=== PATIENT | male | born 1930 | race Caucasian/White ===

== ENCOUNTER → 2018-04-24 | Outpatient (CLI) | payer MEDICARE ==
[~2018-04-24] MED LIST: ALEN70 PO; ALLO300 PO; AMLO5 PO; ASPI81CH PO; CEPH500 PO; CHOL10002 PO; FURO80 PO; HYDR1TAB94 PO; IRON150C PO; LEVSOD75 PO; LOVA40 PO; METO2.5 PO; METO25ER PO; OMEP40CA12 PO; POTCHL20ER PO; SPIR25 PO; WARF1 PO; WARF2.5 PO; [UNRECOGNIZED DRUG - REMARK]
== END | disposition home or self-care (01) ==
LOC: LAB SHORT 11:31 → PLD 11:31
DX: D48.5 Neoplasm of uncertain behavior of skin (principal)
CPT/HCPCS: 88305

== ENCOUNTER → 2019-05-04 | Outpatient (CLI) | payer MEDICARE ==
[~2019-05-04] MED LIST changes: +ASCO500 PO; +Aspir 8181 MG PO; +BISA5EC PO; +CAPTOPRIL PO; +CITRATE OF MAG296 ML PO; +DOCU100 PO; +Flonase 0.05% N16 GM; -HYDR1TAB94 PO; +Norco 7.5-3251 EACH PO; +Prilosec Otc20 MG PO; +TAMS.4ER PO; +TIZA4 PO; +Vitamin D2000 UNIT PO
== END | disposition home or self-care (01) ==
LOC: PLD 16:39 → LAB SHORT 16:39
DX: C44.42 Squamous cell carcinoma of skin of scalp and neck (principal)
CPT/HCPCS: 88305

== ENCOUNTER → 2019-05-25 | Outpatient (CLI) | payer MEDICARE | END | disposition home or self-care (01) | LOC: LAB SHORT 14:29 → PLD 14:29 | DX: L57.8 Other skin changes due to chronic exposure to nonionizing radiation (principal) | CPT/HCPCS: 88305 ==

== ENCOUNTER 2019-06-01 11:15 | Emergency (ER) | payer MEDICARE ==
[~2019-06-01] VITALS: Ht 165.1 cm; Wt 68.0 kg
[~2019-06-01 11:15] MED LIST changes: -ASCO500 PO; -Aspir 8181 MG PO; -BISA5EC PO; -CAPTOPRIL PO; -CITRATE OF MAG296 ML PO; -DOCU100 PO; -Flonase 0.05% N16 GM; -Prilosec Otc20 MG PO; -TAMS.4ER PO; -TIZA4 PO; -Vitamin D2000 UNIT PO
[2019-06-01] MEDS ORDERED: BISA5EC PO (15:45)
[2019-06-01] MEDS ORDERED: TIZA4 PO (15:45)
[2019-06-01] MEDS ORDERED: CITRATE OF MAG296 ML PO (15:45)
[2019-06-01] MEDS ORDERED: TAMS.4ER PO (15:51)
[2019-06-01] MEDS ORDERED: CAPTOPRIL PO (15:53)
[2019-06-01] MEDS ORDERED: DOCU100 PO (15:53)
[2019-06-01] MEDS ORDERED: Flonase 0.05% N16 GM (15:53)
[2019-06-01] MEDS ORDERED: ASCO500 PO (15:54)
[2019-06-01] MEDS ORDERED: Prilosec Otc20 MG PO (15:54)
[2019-06-01] MEDS ORDERED: Aspir 8181 MG PO (15:54)
[2019-06-01] MEDS ORDERED: Vitamin D2000 UNIT PO (15:55)
== END 2019-06-01 15:56 | disposition home or self-care (01) ==
LOC: ER 11:15
DX: K59.00 Constipation, unspecified (principal); M54.5 Low back pain; Z87.891 Personal history of nicotine dependence; Z79.899 Other long term (current) drug therapy; Z79.01 Long term (current) use of anticoagulants; Z79.891 Long term (current) use of opiate analgesic; Z79.82 Long term (current) use of aspirin
CPT/HCPCS: 74018; 99284-25

== ENCOUNTER → 2020-03-22 | Outpatient (CLI) | payer MEDICARE ==
[~2020-03-22] MED LIST changes: +ASCO500 PO; +Aspir 8181 MG PO; +BISA5EC PO; +CAPTOPRIL PO; +CITRATE OF MAG296 ML PO; +DOCU100 PO; +Flonase 0.05% N16 GM; +Prilosec Otc20 MG PO; +TAMS.4ER PO; +TIZA4 PO; +Vitamin D2000 UNIT PO
== END | disposition home or self-care (01) ==
LOC: PLD 08:02 → LAB SHORT 08:02
DX: D48.5 Neoplasm of uncertain behavior of skin (principal)
CPT/HCPCS: 88305

== ENCOUNTER 2020-05-04 12:14 | Day surgery (SDC) | payer MEDICARE ==
[~2020-05-04] VITALS: Ht 165.1 cm; Wt 62.2 kg
--- NOTE | 2020-05-04 12:58 | NUR ---
05/04/20 1258 PILAR DIAZ ONE ATTEMPT IN RH BY RN VALVE ONE SUCCESSFUL IN RFA BY RN PT TOW
--- NOTE | 2020-05-04 13:33 | NUR ---
05/04/20 1333 Leonila Beverly BOTOX LOT # [id number] EXP. 08/2022
== END 2020-05-04 14:00 | disposition home or self-care (01) ==
LOC: ORSCSDS 12:14
PROVIDERS: Internal Medicine Gastroenterology
PROC: 0DB68ZX Excision of Stomach, Via Natural or Artificial Opening Endoscopic, Diagnostic (ICD-10-PCS; principal; 2020-05-04 14:15)
PROC: 0DB48ZX Excision of Esophagogastric Junction, Via Natural or Artificial Opening Endoscopic, Diagnostic (ICD-10-PCS; principal; 2020-05-04 14:15)
PROC: 3E0G8GC Introduction of Other Therapeutic Substance into Upper GI, Via Natural or Artificial Opening Endoscopic (ICD-10-PCS; principal; 2020-05-04 14:15)
DX: R13.10 Dysphagia, unspecified (principal); K22.0 Achalasia of cardia; K29.70 Gastritis, unspecified, without bleeding; I10 Essential (primary) hypertension; I48.91 Unspecified atrial fibrillation; Z79.01 Long term (current) use of anticoagulants; E03.9 Hypothyroidism, unspecified; E78.00 Pure hypercholesterolemia, unspecified; Z79.899 Other long term (current) drug therapy
CPT/HCPCS: 88305; 88342; J0585; J2704; J7120

== ENCOUNTER 2020-07-25 06:01 | Day surgery (SDC) | payer MEDICARE ==
[~2020-07-25] VITALS: Ht 165.1 cm; Wt 63.0 kg
--- NOTE | 2020-07-25 07:33 | NUR ---
DR SCHNEIDER ARRIVED.
--- NOTE | 2020-07-25 08:32 | NUR ---
PT TOLERATED ROMAN WELL. PT STATES "I DIDN'T FEEL A THING." CALL LIGHT IN REACH.
--- NOTE | 2020-07-25 08:40 | NUR ---
DR CASTAÑEDA IN ROOM TO SEE PT.
--- NOTE | 2020-07-25 08:58 | NUR ---
PT DRANK SIPS OF WATER WITH NO ASPIRATION. DISCHARGE INSTRUCTIONS REVIEWED AND ALL QUESTIONS ANSWERED. 20 G IV DISCONTINUED FROM RIGHT AC WITH INTACT CANNULA. PT AMBULATED TO TO VOID. PT ESCORTED OUT VIA WHEELCHAIR ESCORT.
== END 2020-07-25 22:37 | disposition home or self-care (01) ==
LOC: MHTC 06:01
DX: T82.03XA Leakage of heart valve prosthesis, initial encounter (principal); Y83.1 Surgical operation with implant of artificial internal device as the cause of abnormal reaction of the patient, or of later complication, without mention of misadventure at the time of the procedure; I70.0 Atherosclerosis of aorta; I10 Essential (primary) hypertension; I25.10 Atherosclerotic heart disease of native coronary artery without angina pectoris; E03.9 Hypothyroidism, unspecified; I48.91 Unspecified atrial fibrillation; I48.92 Unspecified atrial flutter; I27.20 Pulmonary hypertension, unspecified; Z79.899 Other long term (current) drug therapy; Z79.01 Long term (current) use of anticoagulants; Z79.82 Long term (current) use of aspirin; Z87.891 Personal history of nicotine dependence; Z88.8 Allergy status to other drugs, medicaments and biological substances
CPT/HCPCS: 93312; 93325; J2704; J7030

== ENCOUNTER → 2020-11-01 | Outpatient (CLI) | payer MEDICARE | LOC: LAB 15:05 → LAB SHORT 15:05 | DX: D48.5 Neoplasm of uncertain behavior of skin (principal) | CPT/HCPCS: 88305 ==

== ENCOUNTER → 2020-11-14 | Outpatient (CLI) | payer MEDICARE | END | disposition home or self-care (01) | LOC: PLD 13:25 → LAB SHORT 13:25 | DX: C44.319 Basal cell carcinoma of skin of other parts of face (principal) | CPT/HCPCS: 88305 ==